=== PATIENT | female | born 1995 | race Caucasian/White ===

== ENCOUNTER 2024-04-20 21:12 | Emergency (ER) | payer OTHER, SELFPAY ==
[2024-04-20 21:14] VITALS: BP 126/81
--- NOTE | 2024-04-20 23:49 | ED.GENMED ---
History of Present Illness
General
Chief Complaint: Back Pain
Source: patient
Exam Limitations: none
Time Seen by Provider: 04/20/24 23:42
Nursing documentation reviewed up to this point in time: agreed with
History of Present Illness
History of Present Illness:
Patient presents with low back pain. Onset about 2 or 3 days ago�reportedly lifted last week and then a few days later started with low back pain worse on the right. Pain radiates towards the right hip/leg. Worse with movement, somewhat
better with with [place] balm. No weakness in the lower extremities, no numbness in the lower extremities. No saddle anesthesia. No bowel or bladder incontinence. No other complaints.
Past History
Past History
ED Past Medical History: Other (dilated cardiomyopathy; transgender F-->M)
ED Past Surgical History: Gynecological (mastectomy, hysterectomy)
Review of Systems
Review of Systems
All Other Systems: ROS reviewed and negative except as documented in HPI and ROS
: Denies incontinence
Musculoskeletal: Reports back pain
Neurological: Reports weakness and numbness
Phy Exam
Physical Exam
Physical Exam:
General: Well appearing and non-toxic
HEENT: protecting airway
Neck: appears supple
CV: No evidence of cyanosis
Resp: No accessory muscle use
Abd: Non-distended
Back: No midline thoracic or lumbar tenderness, mild right paraspinal tenderness lower lumbar region; positive straight leg raise on the right
Extremities: No deformities
Neuro: Alert, ambulatory, motor and sensory function intact in lower extremities
Psych: Normal affect
Skin: Intact
Scores
Heart Failure Risk
Heart Failure Risk Score: Not Applicable
Heart Score for Chest Pain Patients
STEMI patient?: Not applicable
Withdrawal Assessment of Alcohol
Withdrawal Assessment Completed?: Not applicable
Course
Orders/Labs/Results
Orders:
Orders
04/20/24 23:47
CR Lumbar Spine 2 Or 3 Views Urgent
Comment:
Reason For Exam: low back pain
Vital Signs
Initial and Last Documented VS:
Initial Vital Signs
Temp Pulse Resp BP Pulse Ox
36.9 C 96 18 126/81 96
04/20/24 21:14 04/20/24 21:14 04/20/24 21:14 04/20/24 21:14 04/20/24 21:14
Last Documented Vital Signs
Temp Pulse Resp BP Pulse Ox
36.9 C 96 18 126/81 96
04/20/24 21:14 04/20/24 21:14 04/20/24 21:14 04/20/24 21:14 04/20/24 21:14
MDM/Problems Addressed
Differential Diagnosis Includes:
Myofascial strain, bulging/herniated disc, lumbar radiculopathy, fracture
MDM/Problems Addressed:
Patient presents with low back pain started few days after lifting. Located right lumbar region radiates towards hip. Vitals and exam as above. No red flag symptoms or exam findings. History and exam consistent with likely bulging/herniated
disc and sciatica. Check x-ray to rule out fracture. Can treat with steroid pack and NSAIDs/Tylenol. Prescription for PT. Follow-up with PCP.
X-ray reviewed by ean for fracture. Stable for discharge with plan as above.
*Radiology
Radiology exam reviewed: preliminary read by ED provider
*Pulse Oximetry
Patient hypoxic: no
*Critical Care Note
Total Time (30-74mins, 75-104mins- exclusive of procedures): Not Applicable
Data Reviewed
Source: patient
ED Attending Note
-
Portions of this chart may have been created with voice recognition software.� Occasional wrong word or��sound alike� substitutions may have occurred due to the inherent limitations of voice recognition software.
Discharge Plan
Departure
Patient Disposition: Home (Routine Discharge)
Date of Disposition: 04/21/24
Time of Disposition: 00:21
Patient with high blood pressure during this ER visit?: No
Discharge Problem:
Acute low back pain with sciatica
Instructions: Low Back Pain (DC), Sciatica (DC)
Prescriptions:
New
methylprednisolone [Medrol (Danilo)] 4 mg tablets,dose pack
See Rx Instructions .ROUTE .COMPLEX Qty: 21 0RF
Rx Instructions:
for 6 days
ibuprofen 600 mg tablet
600 mg PO Q6H PRN (Reason: Pain) Qty: 30 0RF
No Action
finasteride 5 mg Tablet
5 mg PO DAILY
docusate sodium 100 mg Capsule
100 mg PO BID Qty: 60 0RF
testosterone 1.62 % (20.25 mg/1.25 gram) Gel In Packet
2 packet TRANSDERMAL DAILY
Rx Instructions:
apply 20.25 mg /1 packet to max area of EACH upper arm and shoulder
minoxidil 5 % Foam
1 ea TOPICAL BID
Activity Restrictions/Additional Instructions:
Thank you for visiting the Emergency Department at [facility].
1. Please schedule a follow up appointment as directed. Call first thing tomorrow morning to make an appointment.
2. If indicated, please take your medications as instructed and indicated on discharge paperwork.
3. If any of your symptoms do not improve, or persist, or become more severe within 6-12 hours, please return to the emergency department for further care.
4. Please return to the emergency department if you develop a headache, neck pain/stiffness, fever greater than 100.4F, chest pain, shortness of breath, persistent nausea, vomiting, slurred speech, difficulty walking, numbness/tingling, weakness,
signs of infection or any other symptoms that are worrisome to you.
Please call [phone] if you have any questions.
Interventions
Interventions:
*Risk Screen - Suicide Last Done: 04/20/24 21:14
*General Assessment Last Done: 04/20/24 21:14
*Neglect/Abuse Screening Last Done: 04/20/24 21:14
ED- Fall Risk Assessment Last Done: 04/20/24 23:48
*ED COVID-19 Vaccine History Last Done: 04/20/24 21:14
ED-Musculoskeletal Assessment Last Done: 04/20/24 23:47
Discharge Date and Time
Print Language: SCOTTISH
== END 2024-04-21 00:27 | disposition home or self-care (01) ==
LOC: EMR 21:12
PROVIDERS: EMERGENCY PHYSICIAN Emergency Medicine; FAMILY PHYSICIAN Family Medicine
DX: M54.40 Lumbago with sciatica, unspecified side (principal); I42.0 Dilated cardiomyopathy; Z90.710 Acquired absence of both cervix and uterus
CPT/HCPCS: 99283; 72100